=== PATIENT | female | born 1965 | race Caucasian/White ===

== ENCOUNTER 2020-07-24 15:26 | Emergency (ER) | payer OTHER ==
[~2020-07-24] VITALS: Ht 167.6 cm; Wt 80.7 kg
[~2020-07-24 15:26] MED LIST: PROVENTIL3 ML/2.5 M IH; SINGULAIR 10MG10 MG PO; SYMBICORT 16010.2 GM IH; ZYNCOF 20-400120 ML PO
[2020-07-24] MEDS ORDERED: ACETAMINOPHEN650 M2 PO (20:19)
[2020-07-24] MEDS ORDERED: ORPHENADRINE C100 MG PO (20:19)
[2020-07-24] MEDS ORDERED: MEDROLPACK PO (20:19)
== END 2020-07-24 20:44 | disposition home or self-care (01) ==
LOC: ER 15:26 → EDBD 15:28 → ER 20:44
DX: R10.2 Pelvic and perineal pain (principal); Z03.818 Encounter for observation for suspected exposure to other biological agents ruled out

== ENCOUNTER → 2020-07-25 | Outpatient (CLI) | payer OTHER ==
[~2020-07-25] MED LIST changes: +ACETAMINOPHEN650 M2 PO; +MEDROLPACK PO; +ORPHENADRINE C100 MG PO
== END | disposition home or self-care (01) ==
LOC: OFIC 805 11:30 → EDBD 11:30 → OFIC 805 12:47
PROVIDERS: ATTEND Otolaryngology
DX: R42 Dizziness and giddiness (principal)